=== PATIENT | female | born 1965 | race Caucasian/White ===

== ENCOUNTER 2017-10-30 08:08 | Emergency (ER) | payer MEDICAID ==
[2017-10-30] MEDS ORDERED: Labetalol 5 mg/ml Inj 20ML IV STA (08:45)
[2017-10-30] MEDS ORDERED: Labetalol 25mg/5ml Syringe ONE (09:01)
[2017-10-30 09:20] LABS: BASO # 0.1 K/uL (0.0-0.2); BASO % 0.6 % (0.0-2.0); EOS # 0.3 K/uL (0.0-0.7); EOS % 3.5 % (0.0-4.0); HEMOGLOBIN 13.9 g/dL (11.0-16.0); LYMPH # 3.7 K/uL (1.0-4.3); LYMPH % 41.1 % (20.0-40.0); MEAN CELL VOLUME 84.1 fL (81.0-99.0); MEAN CORPUSCULAR HEMOGLOBIN 29.3 pg (27.0-31.0); MEAN CORPUSCULAR HGB CONC 34.8 g/dL (33.0-37.0); MEAN PLATELET VOLUME 8.3 fL (7.2-11.7); MONO # 0.7 K/uL (0.0-0.8); MONO % 7.4 % (0.0-10.0); NEUT # 4.3 K/uL (1.8-7.0); NEUT % 47.4 % (50.0-75.0); RBC 4.74 Mil/uL (3.80-5.20); RED CELL DISTRIBUTION WIDTH 13.7 % (11.5-14.5)
[2017-10-30 09:25] VITALS: TEMP 98.9
[2017-10-30 09:40] LABS: ALB/GLOB RATIO 1.2 (1.0-2.1); ALBUMIN 4.1 g/dL (3.5-5.0); ALT/SGPT 17 U/L (9-52); AST/SGOT 22 U/L (14-36); BLOOD UREA NITROGEN 10 mg/dL (7-17); CALCIUM 9.2 mg/dl (8.6-10.4); GFR AFRICAN-AMERICAN > 60; GFR NON-AFRICAN AMERICAN > 60; LIPASE 26 U/L (23-300)
--- NOTE | 2017-10-30 10:05 | RAD ---
HISTORY: SOB COMPARISON: No prior. TECHNIQUE: Chest PA and lateral FINDINGS: LUNGS: No active pulmonary disease. PLEURA: No significant pleural effusion identified. No pneumothorax apparent. CARDIOVASCULAR: Normal. OSSEOUS STRUCTURES: No significant abnormalities. VISUALIZED UPPER ABDOMEN: Normal. OTHER FINDINGS: None. IMPRESSION: No acute cardiopulmonary disease appreciated.
--- NOTE | 2017-10-30 10:12 | RAD ---
PROCEDURE: Cervical Spine Radiographs. HISTORY: Pain. COMPARISON: None. FINDINGS: BONES: Limited reversal of cervical curvature without fracture or spondylolisthesis identified. Vertebral body heights are normal as well as disc interspace heights. Limited multilevel spondylosis seen at the inferior cervical spine. No destructive bony lesion appreciable. Prevertebral soft tissues appear unremarkable. Mild multilevel facet arthropathy is suggested. DISC SPACES: As above. SOFT TISSUES: As above. OTHER FINDINGS: None. IMPRESSION: Subtle reversal of cervical curvature with limited multilevel degenerative disc and facet joint changes.
--- NOTE | 2017-10-30 10:13 | RAD ---
PROCEDURE: Radiographs of the Left Shoulder HISTORY: arm pain COMPARISON: No prior. FINDINGS: BONES: No acute fracture or destructive bony lesion identified. JOINTS: Normal. Glenohumeral and acromioclavicular joints preserved. No osteoarthritis. SOFT TISSUES: Normal. OTHER FINDINGS: None. IMPRESSION: Unremarkable radiographs of the left shoulder.
--- NOTE | 2017-10-30 10:20 | C.PDOC ---
History Of Present Illness 52 y/o female presents to the ER complaining of left neck and left shoulder pain which has been present for the past 1 month. Patient states that the pain is worse with movement. Patient reports that she experienced relief with muscle relaxants. Denies having CP and SOB. Of note, patient is right hand dominant. Time Seen by Provider: 10/30/17 08:29 Chief Complaint (Nursing): Upper Extremity Problem/Injury History Per: Patient History/Exam Limitations: no limitations Onset/Duration Of Symptoms: Days Current Symptoms Are (Timing): Still Present Severity: Moderate Past Medical History Reviewed: Historical Data, Nursing Documentation, Vital Signs Vital Signs: Last Vital Signs Temp 98.9 F 10/30/17 09:24 Pulse 82 10/30/17 09:51 Resp 12 10/30/17 09:51 BP 156/96 H 10/30/17 09:51 Pulse Ox 99 10/30/17 11:00 - Medical History PMH: No Chronic Diseases Surgical History: No Surg Hx Family History: States: No Known Family Hx - Social History Hx Alcohol Use: No Hx Substance Use: No - Immunization History Hx Tetanus Toxoid Vaccination: No Hx Influenza Vaccination: No Hx Pneumococcal Vaccination: No Review Of Systems Except As Marked, All Systems Reviewed And Found Negative. Constitutional: Negative for: Fever, Chills Musculoskeletal: Positive for: Neck Pain, Shoulder Pain (left shoulder pain) Physical Exam - Physical Exam Appears: Non-toxic, No Acute Distress Skin: Normal Color, Warm, Dry Head: Atraumatic, Normacephalic Eye(s): bilateral: Normal Inspection Nose: Normal Oral Mucosa: Moist Neck: Paracervical Tenderness (left-sided paracervical tenderness ), Supple Chest: Symmetrical Cardiovascular: Rhythm Regular Respiratory: Normal Breath Sounds, No Rales, No Rhonchi, No Wheezing Gastrointestinal/Abdominal: Normal Exam, Soft, No Tenderness Back: Other (left sided trapezius tenderness ) Extremity: Normal ROM (left arm) Neurological/Psych: Oriented x3, Normal Speech, Normal Motor, Normal Sensation ED Course And Treatment - Laboratory Results Result Diagrams: 10/30/17 09:15 10/30/17 09:15 ECG: Interpreted By Me, Viewed By Me ECG Rhythm: Sinus Rhythm ECG Interpretation: Normal Interpretation Of ECG: NSR with normal intervals, normal axises, and no ST/ T wave abnormalities Rate From EC O2 Sat by Pulse Oximetry: 99 (RA) Pulse Ox Interpretation: Normal - Radiology CXR: Interpreted by Me, Viewed By Me CXR Interpretation: Yes: No Acute Disease - Other Rad X-Ray- Left Shoulder X-Ray: Viewed By Me, Read By Radiologist Interpretation: PROCEDURE: Radiographs of the Left Shoulder. HISTORY: arm pain. COMPARISON: No prior. FINDINGS: BONES: No acute fracture or destructive bony lesion identified. JOINTS: Normal. Glenohumeral and acromioclavicular joints preserved. No osteoarthritis. SOFT TISSUES: Normal. OTHER FINDINGS: None. IMPRESSION: Unremarkable radiographs of the left shoulder. X-Ray- Cervical Spine X-Ray: Viewed By Me, Read By Radiologist Interpretation: PROCEDURE: Cervical Spine Radiographs. HISTORY: Pain. COMPARISON: None. FINDINGS: BONES: Limited reversal of cervical curvature without fracture or spondylolisthesis identified. Vertebral body heights are normal as well as disc interspace heights. Limited multilevel spondylosis seen at the inferior cervical spine. No destructive bony lesion appreciable. Prevertebral soft tissues appear unremarkable. Mild multilevel facet arthropathy is suggested. DISC SPACES: As above. SOFT TISSUES: As above. OTHER FINDINGS: None. IMPRESSION: Subtle reversal of cervical curvature with limited multilevel degenerative disc and facet joint changes. Medical Decision Making Medical Decision Making: Patient was found to have BP - 200/128. Cardiac workup will be ordered. Assessment: Cervical Radiculopathy/ HTN Plan: --Labs --UA --ECG --CXR --X-Ray- Cervical Spine --X-Ray - Left Shoulder --Toradol IV --Trandate IV patient repeat bp lowered. Discussed results with patient and need to follow up. Patient will be started on norvasc and advised to call to make a follow up appointment. Information provided for food consultant doctor. Disposition Counseled Patient/Family Regarding: Studies Performed, Diagnosis, Need For Followup, Rx Given - Disposition Referrals: Violet Keyes MD [Staff Provider] - Beau Farley Jr., MD [Medical Doctor] - Disposition: HOME/ ROUTINE Disposition Time: 10:52 Condition: STABLE Additional Instructions: follow up with Dr Farley in 2 days call to make an appointment take medications as prescribed return to ER if symptoms worsens or progress Prescriptions: Acetaminophen/Codeine [Tylenol/Codeine 300 MG/30 MG] 1 tab PO Q6H PRN #12 tab PRN Reason: Pain, Severe (8-10) amLODIPine [Norvasc] 5 mg PO DAILY #15 tab Cyclobenzaprine [Cyclobenzaprine HCl] 10 mg PO TID PRN #12 tab PRN Reason: Muscle Spasm Naproxen [Naprosyn] 500 mg PO BID PRN #16 tab PRN Reason: Pain, Moderate (4-7) Instructions: Radiculopathy, Controlling Your Blood Pressure Through Lifestyle , Medicines for High Blood Pressure Forms: General Discharge Instructions, [facility] (Finnish), Work Excuse - Clinical Impression Clinical Impression: Cervical radiculopathy, Hypertension - Scribe Statement The provider has reviewed the documentation as recorded by the Andrew Ruiz All medical record entries made by the Andrew were at my direction and personally dictated by me. I have reviewed the chart and agree that the record accurately reflects my personal performance of the history, physical exam, medical decision making, and the department course for this patient. I have also personally directed, reviewed, and agree with the discharge instructions and disposition.
[2017-10-30] MEDS ORDERED: Acetaminophen-Codeine 300/30 mg Tab PO STA (10:49)
[2017-10-30] MEDS ORDERED: Acetaminophen-Codeine 300/30 mg Tab PO ONE (11:23)
[2017-10-30 11:51] VITALS: BP 138/102; PULSE 89; RESP 15; O2SAT 99
--- NOTE | 2017-11-02 05:58 | CARD ---
APPROVED REPORT EKG Measurement Heart [id number] MA 126P13 [id number] <Conclusion> Normal sinus rhythm Normal ECG
== END 2017-10-30 12:02 | disposition home or self-care (01) ==
LOC: C.ER 08:08
DX: M54.12 Radiculopathy, cervical region (principal); I10 Essential (primary) hypertension
CPT/HCPCS: 71046; 72040; 73030; 80053; 82550; 83690; 84484; 85025; 93005; 96374; 99285; J1885

== ENCOUNTER 2017-10-30 12:44 | Observation (INO) | payer MEDICAID ==
[2017-10-30 14:06] LABS: BASO # 0.1 K/uL (0.0-0.2); BASO % 0.7 % (0.0-2.0); EOS # 0.2 K/uL (0.0-0.7); EOS % 2.4 % (0.0-4.0); HEMOGLOBIN 13.9 g/dL (11.0-16.0); LYMPH % 41.9 % (20.0-40.0); MEAN CELL VOLUME 84.7 fL (81.0-99.0); MEAN CORPUSCULAR HEMOGLOBIN 29.6 pg (27.0-31.0); MEAN CORPUSCULAR HGB CONC 34.9 g/dL (33.0-37.0); MEAN PLATELET VOLUME 7.9 fL (7.2-11.7); MONO # 0.6 K/uL (0.0-0.8); MONO % 6.5 % (0.0-10.0); NEUT # 4.6 K/uL (1.8-7.0); NEUT % 48.5 % (50.0-75.0); NRBC % 0.1 % (0.0-2.0); RBC 4.7 Mil/uL (3.80-5.20); RED CELL DISTRIBUTION WIDTH 13.8 % (11.5-14.5); WHITE BLOOD COUNT 9.5 K/uL (4.8-10.8)
[2017-10-30 14:31] LABS: ALB/GLOB RATIO 1.2 (1.0-2.1); ALBUMIN 3.9 g/dL (3.5-5.0); ALT/SGPT 26 U/L (9-52); AST/SGOT 23 U/L (14-36); BLOOD UREA NITROGEN 10 mg/dL (7-17); CALCIUM 9.2 mg/dl (8.6-10.4); GFR AFRICAN-AMERICAN > 60; GFR NON-AFRICAN AMERICAN > 60
--- NOTE | 2017-10-30 14:50 | CT ---
PROCEDURE: CT HEAD WITHOUT CONTRAST. HISTORY: dizziness COMPARISON: None available. TECHNIQUE: Axial computed tomography images were obtained through the head/brain without intravenous contrast. Radiation dose: Total exam DLP = 600.64 mGy-cm. This CT exam was performed using one or more of the following dose reduction techniques: Automated exposure control, adjustment of the mA and/or kV according to patient size, and/or use of iterative reconstruction technique. FINDINGS: HEMORRHAGE: No intracranial hemorrhage. BRAIN: Normal dumont-white matter differentiation and density are appreciated throughout the cerebrum and cerebellum with the brainstem appearing unremarkable as well. There is no mass effect. There is no suspicious extra-axial fluid collection and the midline brain anatomy appears diffusely unremarkable. Bilateral basal ganglia calcifications are appreciated mildly as well as a small calcification in the anterior falx which is nonspecific appearing. VENTRICLES: Unremarkable. No hydrocephalus. CALVARIUM: Unremarkable. PARANASAL SINUSES: Unremarkable as visualized. No significant inflammatory changes. MASTOID AIR CELLS: Unremarkable as visualized. No inflammatory changes. OTHER FINDINGS: None. IMPRESSION: Unremarkable unenhanced head CT. Follow up CT or MRI are available if clinically warranted.
--- NOTE | 2017-10-30 15:18 | C.PDOC ---
History Of Present Illness 52 y/o female presents to the ER for evaluation of a near syncopal episode after she visited the ER earlier today. Patient was evaluated for cervical radiculopathy and elevated BP ( without prior hx), had a workup, and was discharged. Patient returns secondary to near syncope. She reports that feels better now. Denies having CP and SOB. Time Seen by Provider: 10/30/17 12:59 Chief Complaint (Nursing): Syncope History Per: Patient History/Exam Limitations: no limitations Onset/Duration Of Symptoms: Hrs Current Symptoms Are (Timing): Gone Severity: Moderate Past Medical History Reviewed: Historical Data, Nursing Documentation, Vital Signs Vital Signs: Last Vital Signs Temp 98.0 F 10/31/17 08:26 Pulse 97 H 10/31/17 09:00 Resp 20 10/31/17 08:26 BP 158/100 H 10/31/17 08:26 Pulse Ox 100 10/31/17 08:26 - Medical History PMH: No Chronic Diseases Surgical History: No Surg Hx Family History: States: No Known Family Hx - Social History Hx Alcohol Use: No Hx Substance Use: No - Immunization History Hx Tetanus Toxoid Vaccination: No Hx Influenza Vaccination: No Hx Pneumococcal Vaccination: No Review Of Systems Except As Marked, All Systems Reviewed And Found Negative. Constitutional: Negative for: Fever, Chills Neurological: Positive for: Other (near syncope) Physical Exam - Physical Exam Appears: Non-toxic, No Acute Distress Skin: Normal Color, Warm, Dry Head: Atraumatic, Normacephalic Eye(s): bilateral: Normal Inspection Nose: Normal Oral Mucosa: Moist Neck: Supple Chest: Symmetrical Cardiovascular: Rhythm Regular Respiratory: Normal Breath Sounds, No Rales, No Rhonchi, No Wheezing Gastrointestinal/Abdominal: Normal Exam, Soft, No Tenderness Neurological/Psych: Oriented x3, Normal Speech ED Course And Treatment - Laboratory Results Result Diagrams: 10/30/17 13:57 10/30/17 13:57 ECG: Interpreted By Me, Viewed By Me ECG Rhythm: Sinus Rhythm Interpretation Of ECG: NSR with normal intervals, normal axises, and no ST/ T wave abnormalities Rate From EC O2 Sat by Pulse Oximetry: 100 (RA) Pulse Ox Interpretation: Normal - CT Scan/US CT-Head Other Rad Studies (CT/US): Read By Radiologist, Radiology Report Reviewed CT/US Interpretation: PROCEDURE: CT HEAD WITHOUT CONTRAST. HISTORY: dizziness. COMPARISON: None available. TECHNIQUE: Axial computed tomography images were obtained through the head/brain without intravenous contrast. Radiation dose: Total exam DLP = 600.64 mGy-cm. This CT exam was performed using one or more of the following dose reduction techniques: Automated exposure control, adjustment of the mA and/or kV according to patient size, and/ or use of iterative reconstruction technique. FINDINGS: HEMORRHAGE: No intracranial hemorrhage. BRAIN: Normal dumont-white matter differentiation and density are appreciated throughout the cerebrum and cerebellum with the brainstem appearing unremarkable as well. There is no mass effect. There is no suspicious extra-axial fluid collection and the midline brain anatomy appears diffusely unremarkable. Bilateral basal ganglia calcifications are appreciated mildly as well as a small calcification in the anterior falx which is nonspecific appearing. VENTRICLES: Unremarkable. No hydrocephalus. CALVARIUM: Unremarkable. PARANASAL SINUSES: Unremarkable as visualized. No significant inflammatory changes. MASTOID AIR CELLS: Unremarkable as visualized. No inflammatory changes. OTHER FINDINGS: None. IMPRESSION: Unremarkable unenhanced head CT. Follow up CT or MRI are available if clinically warranted. Medical Decision Making Medical Decision Making: Assessment: Near- Syncope Plan: --Labs --ECG --CT- Head Updates: Case discussed with hospitalist, . Patient will be admitted to [facility] under the service of for near- syncope. Disposition Discussed With .: Miguel Humphreys Doctor Will See Patient In The: Hospital Counseled Patient/Family Regarding: Studies Performed, Diagnosis - Disposition Disposition: HOSPITALIZED Disposition Time: 15:20 Condition: FAIR - Clinical Impression Clinical Impression: Near syncope - Scribe Statement The provider has reviewed the documentation as recorded by the Andrew Ruiz Provider Attestation: All medical record entries made by the Scribe were at my direction and personally dictated by me. I have reviewed the chart and agree that the record accurately reflects my personal performance of the history, physical exam, medical decision making, and the department course for this patient. I have also personally directed, reviewed, and agree with the discharge instructions and disposition.
--- NOTE | 2017-10-30 15:27 | CP.PCM.HP ---
<Justin Garcia - Last Filed: 10/30/17 17:00> History of Present Illness - History of Present Illness History of Present Illness: PGY2 note for Hospitalist service - Dr. Juliann ALBRECHT - near syncope, neck/arm pain HPI - Patient is a 52 year old female with a past medical history of hypertension, migraines, multiple previous vasovagal syncopal episodes, anxiety/ depression (with history of suicide ideation) who presents to [facility] ED s/p near syncopal episode at the pharmacy. She came to the ED earlier this morning complaining of neck and left shoulder pain which has been present for the past 1 month. Patient states that the pain is worse with movement, and associated with numbness/tingling in the extremity. 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 Patient reports that she experienced relief with muscle relaxants. Patient reports long history of syncopal events since childhood. She reports "passing out" > 10+ times in her life - always with same prodrome of anxiety, sudden SOB and "in crowds." Patient admits lots of stress recently including suicidal thoughts this AM ( denies presently). Admits she feels down over her having "no job//kids" saying "I feel like there is no point to my life." Denies chest pain, abd pain, N/V, headache, fever, chills, facial droop, slurred speech, urinary symptoms, or SOB. Of note, patient is right hand dominant. PMHx - HTN, Anxiety, Depression (w suicidal ideation), migraines, Vasovagal syncope PSHx - denies Allergies - NKDA Meds - Amlodipine 5mg PO daily. Naproxen 500mg PO BID, Mirtazapine 15mg PO QPM, Hydroxyzine 50mg PO BID prn, Cyclobenzaprine 10mg PO TID prn, Citalopram 20mg PO daily, Buspirone 5mg PO daily Fam Hx - denies SHx - denies drug use; admits occasional EtOH; former smoker (quit 2005 - smoked 1/2 ppd x 7 years) PMD - none Present on Admission - Present on Admission Any Indicators Present on Admission: No Review of Systems - Constitutional Constitutional: absent: Chills, Fever, Weight Loss, Weakness - EENT Eyes: absent: Blurred Vision, Change in Vision Ears: absent: Tinnitus, Dizziness - Cardiovascular Cardiovascular: Syncope. absent: Chest Pain, Chest Pain at Rest - Respiratory Respiratory: absent: Cough, Dyspnea, Dyspnea on Exertion - Gastrointestinal Gastrointestinal: absent: Constipation, Diarrhea, Nausea, Vomiting - Genitourinary Genitourinary: absent: Change in Urinary Stream, Difficulty Urinating - Musculoskeletal Musculoskeletal: Neck Pain, Numbness, Tingling Additional comments: left shoulder pain - Integumentary Integumentary: absent: Dry Skin, Wounds - Neurological Neurological: Numbness, Tingling (LUE). absent: Dizziness, Weakness - Psychiatric Psychiatric: Anxiety - Endocrine Endocrine: absent: Fatigue, Palpitations Past Patient History - Past Social History Smoking Status: Never Smoked - PSYCHIATRIC Hx Substance Use: No - SURGICAL HISTORY Hx Surgeries: No Meds Allergies/Adverse Reactions: Allergies Allergy/AdvReac Type Severity Reaction Status Date / Time No Known Allergies Allergy Verified 10/30/17 08:18 Physical Exam - Constitutional Appears: Non-toxic, No Acute Distress - Head Exam Head Exam: ATRAUMATIC, NORMAL INSPECTION - Eye Exam Eye Exam: EOMI, PERRL Pupil Exam: NORMAL ACCOMODATION - ENT Exam ENT Exam: Mucous Membranes Moist - Respiratory Exam Respiratory Exam: Clear to Auscultation Bilateral, NORMAL BREATHING PATTERN. absent: Rales, Rhonchi, Wheezes, Respiratory Distress - Cardiovascular Exam Cardiovascular Exam: REGULAR RHYTHM, RRR, +S1, +S2 - GI/Abdominal Exam GI & Abdominal Exam: Normal Bowel Sounds, Soft. absent: Distended, Firm, Guarding, Tenderness - Extremities Exam Extremities exam: Positive for: normal inspection Additional comments: normal ROM left arm No signs of hypothenar muscle wasting Tinel negative - Back Exam Back exam: muscle spasm (trapezius), paraspinal tenderness. absent: CVA tenderness (L), CVA tenderness (R) Additional comments: (left sided trapezius tenderness) C4-C7 F Sr Rr - Neurological Exam Neurological exam: Alert, CN II-XII Intact, Normal Gait, Oriented x3 Additional comments: no facial droop, or slurred speech - Expanded Neurological Exam Expanded Patient oriented to: person, place, time Cranial nerves: EOM's Intact: Normal, Nystagmus: Normal, Tongue Deviation: Normal Cerebellar Function: Finger to Nose: Normal, Heel to Wilson: Normal, Romberg: Normal Sensory exam: Lower Extremity Light Touch: Normal, Upper Extremity Light Touch: Normal Neuro motor strength exam: Left Upper Extremity: 4, Right Upper Extremity: 5, Left Lower Extremity: 5, Right Lower Extremity: 5 Coma Scale Eye Opening: SPONTANEOUS Coma Scale Motor Response: OBEYS COMMANDS Coma Scale Verbal: Oriented Coma Scale Total: 15 - Psychiatric Exam Psychiatric exam: Anxious, Depressed (no job, kids, ) - Skin Skin Exam: Normal Color, Warm Results - Vital Signs Recent Vital Signs: Last Vital Signs Temp 99.4 F 10/30/17 15:10 Pulse 92 H 10/30/17 15:10 Resp 18 10/30/17 15:10 BP 116/80 10/30/17 15:10 Pulse Ox 100 10/30/17 15:20 - Labs Result Diagrams: 10/30/17 13:57 10/30/17 13:57 Labs: Laboratory Results - last 24 hr 10/30/17 10/30/17 10/30/17 13:00 13:57 13:57 WBC 9.5 RBC 4.70 Hgb 13.9 Hct 39.8 MCV 84.7 MCH 29.6 MCHC 34.9 RDW 13.8 Plt Count 255 MPV 7.9 Neut % (Auto) 48.5 L Lymph % (Auto) 41.9 H Benzie % (Auto) 6.5 Eos % (Auto) 2.4 Baso % (Auto) 0.7 Neut # (Auto) 4.6 Lymph # (Auto) 4.0 Benzie # (Auto) 0.6 Eos # (Auto) 0.2 Baso # (Auto) 0.1 Sodium 138 Potassium 4.3 Chloride 102 Carbon Dioxide 28 Anion Gap 13 BUN 10 Creatinine 0.8 Est GFR ( Amer) > 60 Est GFR (Non-Af Amer) > 60 POC Glucose (mg/dL) 123 H Random Glucose 180 H Calcium 9.2 Total Bilirubin 0.6 AST 23 ALT 26 Alkaline Phosphatase 69 Troponin I < 0.0120 Total Protein 7.3 Albumin 3.9 Globulin 3.4 Albumin/Globulin Ratio 1.2 Assessment & Plan - Assessment and Plan (Free Text) Assessment: Near syncope Observe on tele Long history of vasovagal syncopal episodes EKG - NSR with normal intervals, normal axis, and no ST/ T wave abnormalities Head CT - no acute infarct or acute pathology CXR - NAD Troponin negative x 1; f/u additional @ 1800 f/u ECHO Muscle Strain (arm/shoulder) XR Shoulder (10/30/17): normal Flexeril 10mg PO HS Cervical spine OA Xr C-spine (10/30/17): multi-level spondylosis Toradol 30mg IV Q6H PRN Hypertension Uncontrolled at presentation in ED (200/128 BPO Max - now controlled) BP was elevated in the ER earlier today: 200/128, now controlled Norvasc 5mg PO daily Monitor Anxiety Buspirone 5mg PO Daily Atarax 50mg PO BID PRN Depression Hx of suicidal ideation; denies current ideation Celexa 20mg PO daily Remeron 15mg PO HS Hx of erosive Gastroenteritis Diagnosed at previous endoscopy "two years ago" Pt on no home meds Protonix 40mg PO Daily Monitor considering pt on IV NSAID Prophylactic Measures VTE: SCDs Heart healthy diet GI: Protonix 40mg PO Daily Justin Garcia PGY-[address] Humphreys <Miguel Humphreys - Last Filed: 10/30/17 17:27> Results - Vital Signs Recent Vital Signs: Last Vital Signs Temp 99.4 F 10/30/17 15:10 Pulse 92 H 10/30/17 15:10 Resp 18 10/30/17 15:10 BP 116/80 10/30/17 15:10 Pulse Ox 100 10/30/17 16:18 - Labs Result Diagrams: 10/30/17 13:57 10/30/17 13:57 Labs: Laboratory Results - last 24 hr 10/30/17 10/30/17 10/30/17 13:00 13:57 13:57 WBC 9.5 RBC 4.70 Hgb 13.9 Hct 39.8 MCV 84.7 MCH 29.6 MCHC 34.9 RDW 13.8 Plt Count 255 MPV 7.9 Neut % (Auto) 48.5 L Lymph % (Auto) 41.9 H Benzie % (Auto) 6.5 Eos % (Auto) 2.4 Baso % (Auto) 0.7 Neut # (Auto) 4.6 Lymph # (Auto) 4.0 Benzie # (Auto) 0.6 Eos # (Auto) 0.2 Baso # (Auto) 0.1 Sodium 138 Potassium 4.3 Chloride 102 Carbon Dioxide 28 Anion Gap 13 BUN 10 Creatinine 0.8 Est GFR ( Amer) > 60 Est GFR (Non-Af Amer) > 60 POC Glucose (mg/dL) 123 H Random Glucose 180 H Calcium 9.2 Total Bilirubin 0.6 AST 23 ALT 26 Alkaline Phosphatase 69 Troponin I < 0.0120 Total Protein 7.3 Albumin 3.9 Globulin 3.4 Albumin/Globulin Ratio 1.2 Attending/Attestation - Attestation I have personally seen and examined this patient.: Yes I have fully participated in the care of the patient.: Yes I have reviewed all pertinent clinical information: Yes Notes (Text): 10/30/17 17:27 Medical Attending: Patient was seen and examined by me, agree with the above note by medical recruiter. I saw the patient together with the medical recruiter in the emergency room. She looked remarkably well when we saw her and she was debating if she wanted to leave AMA or not. She was very nervous about the CAT scan and her blood work CAT scan was okay and the blood work has been stable. She earlier came in the morning for shoulder pain and at that time he was also noted that she had very significantly elevated blood pressures. She got IV labetalol at that time it did bring down the blood pressures and they felt comfortable discharging her so the did area she was walking to the pharmacy when she felt very nervous at the pharmacy and therefore had a near syncopal episode. She is brought back to the emergency room and we were called to the patient in for observation. She said that she felt much better now and she felt her normal self. Again she was debating about going AMA or not however after talking to us said to her that ideally I would like to keep her here just for observation overnight and if her numbers remain stable that she could potentially be discharged tomorrow in the morning Thank you very much, Miguel Humphreys
[2017-10-30] MEDS ORDERED: Naproxen 550 mg Tab PO PRN (15:32)
[2017-10-30 17:45] VITALS: RESP 20
[2017-10-31 08:28] VITALS: BP 158/100; TEMP 98; O2SAT 100
[2017-10-31 09:06] VITALS: PULSE 97
[2017-10-31] MEDS ORDERED: Pantoprazole 40 mg EC Tab PO SCH (10:00)
--- NOTE | 2017-10-31 10:02 | CP.PCM.DIS ---
<WaqasTamara Lester - Last Filed: 10/31/17 11:08> Provider - Provider Date of Admission: 10/30/17 15:19 Attending physician: Miguel Humphreys DO Time Spent in preparation of Discharge (in minutes): 40 Hospital Course - Lab Results Lab Results: Most Recent Lab Values WBC 9.5 K/uL (4.8-10.8) 10/30/17 13:57 RBC 4.70 Mil/uL (3.80-5.20) 10/30/17 13:57 Hgb 13.9 g/dL (11.0-16.0) 10/30/17 13:57 Hct 39.8 % (34.0-47.0) 10/30/17 13:57 MCV 84.7 fL (81.0-99.0) 10/30/17 13:57 MCH 29.6 pg (27.0-31.0) 10/30/17 13:57 MCHC 34.9 g/dL (33.0-37.0) 10/30/17 13:57 RDW 13.8 % (11.5-14.5) 10/30/17 13:57 Plt Count 255 K/uL (130-400) 10/30/17 13:57 MPV 7.9 fL (7.2-11.7) 10/30/17 13:57 Neut % (Auto) 48.5 % (50.0-75.0) L 10/30/17 13:57 Lymph % (Auto) 41.9 % (20.0-40.0) H 10/30/17 13:57 [place] % (Auto) 6.5 % (0.0-10.0) 10/30/17 13:57 Eos % (Auto) 2.4 % (0.0-4.0) 10/30/17 13:57 Baso % (Auto) 0.7 % (0.0-2.0) 10/30/17 13:57 Neut # (Auto) 4.6 K/uL (1.8-7.0) 10/30/17 13:57 Lymph # (Auto) 4.0 K/uL (1.0-4.3) 10/30/17 13:57 [place] # (Auto) 0.6 K/uL (0.0-0.8) 10/30/17 13:57 Eos # (Auto) 0.2 K/uL (0.0-0.7) 10/30/17 13:57 Baso # (Auto) 0.1 K/uL (0.0-0.2) 10/30/17 13:57 Sodium 138 mmol/L (132-148) 10/30/17 13:57 Potassium 4.3 mmol/L (3.6-5.2) 10/30/17 13:57 Chloride 102 mmol/L (98-107) 10/30/17 13:57 Carbon Dioxide 28 mmol/L (22-30) 10/30/17 13:57 Anion Gap 13 (10-20) 10/30/17 13:57 BUN 10 mg/dL (7-17) 10/30/17 13:57 Creatinine 0.8 mg/dL (0.7-1.2) 10/30/17 13:57 Est GFR ( Amer) > 60 10/30/17 13:57 Est GFR (Non-Af Amer) > 60 10/30/17 13:57 POC Glucose (mg/dL) 123 mg/dL (65-110) H 10/30/17 13:00 Random Glucose 180 mg/dL (65-105) H 10/30/17 13:57 Calcium 9.2 mg/dl (8.6-10.4) 10/30/17 13:57 Total Bilirubin 0.6 mg/dL (0.2-1.3) 10/30/17 13:57 AST 23 U/L (14-36) 10/30/17 13:57 ALT 26 U/L (9-52) 10/30/17 13:57 Alkaline Phosphatase 69 U/L (38-126) 10/30/17 13:57 Troponin I < 0.0120 ng/mL (0.00-0.120) 10/30/17 19:32 Total Protein 7.3 g/dL (6.3-8.3) 10/30/17 13:57 Albumin 3.9 g/dL (3.5-5.0) 10/30/17 13:57 Globulin 3.4 gm/dL (2.2-3.9) 10/30/17 13:57 Albumin/Globulin Ratio 1.2 (1.0-2.1) 10/30/17 13:57 - Hospital Course Hospital Course: HPI - Patient is a 52 year old female with a past medical history of hypertension, migraines, multiple previous vasovagal syncopal episodes, anxiety/ depression (with history of suicide ideation) who presents to [facility] ED s/p near syncopal episode at the pharmacy. She came to the ED earlier this morning complaining of neck and left shoulder pain which has been present for the past 1 month. Patient states that the pain is worse with movement, and associated with numbness/tingling in the extremity. 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 Patient reports that she experienced relief with muscle relaxants. Patient reports long history of syncopal events since childhood. She reports "passing out" > 10+ times in her life - always with same prodrome of anxiety, sudden SOB and "in crowds." Patient admits lots of stress recently including suicidal thoughts this AM ( denies presently). Admits she feels down over her having "no job//kids" saying "I feel like there is no point to my life." Denies chest pain, abd pain, N/V, headache, fever, chills, facial droop, slurred speech, urinary symptoms, or SOB. Of note, patient is right hand dominant. PMD - none PMHx - HTN, Anxiety, Depression (w suicidal ideation), migraines, Vasovagal syncope PSHx - denies Allergies - NKDA Meds - Amlodipine 5mg PO daily. Naproxen 500mg PO BID, Mirtazapine 15mg PO QPM, Hydroxyzine 50mg PO BID prn, Cyclobenzaprine 10mg PO TID prn, Citalopram 20mg PO daily, Buspirone 5mg PO daily Fam Hx - denies SHx - denies drug use; admits occasional EtOH; former smoker (quit 2005 - smoked 1/2 ppd x 7 years) Hospital Course: Patient was admitted for a near syncopal episode for observation. Patient's home medications were restarted. A head CT was done which showed no acute infarct or acute pathology. Troponins were negative x2. EKG showed NSR with normal intervals, normal axis, and no ST/T wave abnormalities. Patient was seen and examined at bedside in the AM. Patient stated this near syncopal episode happened previously about 20 years ago. Patient also stated when this occurred yesterday she had not eaten anything since being the ER. Patient stated she was feeling a lot better. Patient denied headache, dizziness, lightheadedness, shortness of breath, chest pain, palpitations, fever, nausea or vomiting. Patient was discharged home and discussed with patient to [facility]2 week.s Images: - Head CT (10/30/17): Unremarkable unenhanced head CT. Follow up CT or MRI are available if clinically warranted. - Shoulder X-ray (10/30/17): Unremarkable radiographs of the left shoulder. - Cervical Spine X-ray (10/30/17): Subtle reversal of cervical curvature with limited multilevel degenerative disc and facet joint changes. - Chest X-ray (10/30/17): No acute cardiopulmonary disease appreciated. Patient stable for discharge after ECHO. Patient to continue all home medications. Please call to make an appointment for follow up of ECHO results and monitoring of hypertension and other chronic conditions. [address] [id number] This is a summary of the patient's hospitalization, please review EMR for further details. Discharge Exam - Head Exam Head Exam: ATRAUMATIC, NORMAL INSPECTION - Eye Exam Eye Exam: EOMI, Normal appearance, PERRL. absent: Scleral icterus Pupil Exam: NORMAL ACCOMODATION - ENT Exam ENT Exam: Mucous Membranes Moist - Respiratory Exam Respiratory Exam: Clear to PA & Lateral, NORMAL BREATHING PATTERN - Cardiovascular Exam Cardiovascular Exam: REGULAR RHYTHM, RRR, +S1, +S2 - GI/Abdominal Exam GI & Abdominal Exam: Normal Bowel Sounds, Soft. absent: Tenderness - Extremities Exam Extremities exam: full ROM, normal inspection Additional comments: Muscle Strength 5/5 of bilateral upper and lower extremities - Neurological Exam Neurological exam: Alert, CN II-XII Intact, Oriented x3 - Psychiatric Exam Psychiatric exam: Normal Affect, Normal Mood - Skin Skin Exam: Normal Color Discharge Plan - Discharge Medications Prescriptions: amLODIPine [Norvasc] 5 mg PO DAILY #30 tab - Follow Up Plan Condition: GOOD Disposition: HOME/ ROUTINE Instructions: DASH Diet, High Blood Pressure (DC), Low Salt Diet, Syncope ( Fainting) (DC), Amlodipine, Near Fainting (DC) Additional Instructions: Patient to continue all home medications. Please call to make an appointment for follow up of ECHO results and monitoring of hypertension and other chronic conditions. [place] [phone] Referrals: [facility] at [facility] [Outside] <Miguel Humphreys - Last Filed: 10/31/17 14:33> Provider - Provider Date of Admission: 10/30/17 15:19 Attending physician: Miguel Humphreys DO Hospital Course - Lab Results Lab Results: Most Recent Lab Values WBC 9.5 K/uL (4.8-10.8) 10/30/17 13:57 RBC 4.70 Mil/uL (3.80-5.20) 10/30/17 13:57 Hgb 13.9 g/dL (11.0-16.0) 10/30/17 13:57 Hct 39.8 % (34.0-47.0) 10/30/17 13:57 MCV 84.7 fL (81.0-99.0) 10/30/17 13:57 MCH 29.6 pg (27.0-31.0) 10/30/17 13:57 MCHC 34.9 g/dL (33.0-37.0) 10/30/17 13:57 RDW 13.8 % (11.5-14.5) 10/30/17 13:57 Plt Count 255 K/uL (130-400) 10/30/17 13:57 MPV 7.9 fL (7.2-11.7) 10/30/17 13:57 Neut % (Auto) 48.5 % (50.0-75.0) L 10/30/17 13:57 Lymph % (Auto) 41.9 % (20.0-40.0) H 10/30/17 13:57 [place] % (Auto) 6.5 % (0.0-10.0) 10/30/17 13:57 Eos % (Auto) 2.4 % (0.0-4.0) 10/30/17 13:57 Baso % (Auto) 0.7 % (0.0-2.0) 10/30/17 13:57 Neut # (Auto) 4.6 K/uL (1.8-7.0) 10/30/17 13:57 Lymph # (Auto) 4.0 K/uL (1.0-4.3) 10/30/17 13:57 [place] # (Auto) 0.6 K/uL (0.0-0.8) 10/30/17 13:57 Eos # (Auto) 0.2 K/uL (0.0-0.7) 10/30/17 13:57 Baso # (Auto) 0.1 K/uL (0.0-0.2) 10/30/17 13:57 Sodium 138 mmol/L (132-148) 10/30/17 13:57 Potassium 4.3 mmol/L (3.6-5.2) 10/30/17 13:57 Chloride 102 mmol/L (98-107) 10/30/17 13:57 Carbon Dioxide 28 mmol/L (22-30) 10/30/17 13:57 Anion Gap 13 (10-20) 10/30/17 13:57 BUN 10 mg/dL (7-17) 10/30/17 13:57 Creatinine 0.8 mg/dL (0.7-1.2) 10/30/17 13:57 Est GFR ( Amer) > 60 10/30/17 13:57 Est GFR (Non-Af Amer) > 60 10/30/17 13:57 POC Glucose (mg/dL) 123 mg/dL (65-110) H 10/30/17 13:00 Random Glucose 180 mg/dL (65-105) H 10/30/17 13:57 Calcium 9.2 mg/dl (8.6-10.4) 10/30/17 13:57 Total Bilirubin 0.6 mg/dL (0.2-1.3) 10/30/17 13:57 AST 23 U/L (14-36) 10/30/17 13:57 ALT 26 U/L (9-52) 10/30/17 13:57 Alkaline Phosphatase 69 U/L (38-126) 10/30/17 13:57 Troponin I < 0.0120 ng/mL (0.00-0.120) 10/30/17 19:32 Total Protein 7.3 g/dL (6.3-8.3) 10/30/17 13:57 Albumin 3.9 g/dL (3.5-5.0) 10/30/17 13:57 Globulin 3.4 gm/dL (2.2-3.9) 10/30/17 13:57 Albumin/Globulin Ratio 1.2 (1.0-2.1) 10/30/17 13:57 Attending/Attestation - Attestation I have personally seen and examined this patient.: Yes I have fully participated in the care of the patient.: Yes I have reviewed all pertinent clinical information, including history, physical exam and plan: Yes Notes (Text): 10/31/17 14:30 Medical attending: Patient can be discharged following the echo. She will need to follow up with the [facility] for the results Her BP, while not has high as when she intially caim to the ER - was still somewhat elevated. She will need to do lifestyle, diet, and also medication for the time being. She is not orthostatic, blood work stable as well Miguel Humphreys
--- NOTE | 2017-11-02 05:05 | CARD ---
APPROVED REPORT EXAM: Two-dimensional and M-mode echocardiogram with Doppler and color Doppler. Other Information Quality : GoodRhythm : INDICATION Dizziness and Vertigo Syncope RISK FACTORS Hypertension 2D DIMENSIONS IVSd0.8 (0.7-1.1cm)LVDd3.1 (3.9-5.9cm) PWd0.8 (0.7-1.1cm)LVDs2.2 (2.5-4.0cm) FS (%) 29.9 %LVEF (%)58.6 (>50%) M-Mode DIMENSIONS Left Atrium (MM)2.65 (2.5-4.0cm)Aortic Root2.94 (2.2-3.7cm) Aortic Cusp Exc.1.84 (1.5-2.0cm) Mitral Valve MV E Pgapirfz41.9cm/sMV A Bjevijov25.6cm/sE/A ratio0.8 TDI E/Lateral E'0.0E/Medial E'0.0 Tricuspid Valve TR Peak Vjeemhuc083wi/sTR Peak Gr.61omYqIAAV96tqUp LEFT VENTRICLE The left ventricle is normal size. There is normal left ventricular wall thickness. Left ventricle systolic function is normal. The Ejection Fraction is 55-60%. There is normal LV segmental wall motion. Tissue Doppler imaging reveals abnormal left ventricular diastolic dysfunction. RIGHT VENTRICLE The right ventricle is normal size. There is normal right ventricular wall thickness. The right ventricular systolic function is normal. ATRIA The left atrium size is normal. The right atrium size is normal. The interatrial septum is intact with no evidence for an atrial septal defect. AORTIC VALVE The aortic valve is normal in structure. No aortic regurgitation is present. There is no aortic valvular stenosis. MITRAL VALVE The mitral valve is normal in structure. There is no evidence of mitral valve prolapse. There is no mitral valve stenosis. There is no mitral valve regurgitation noted. TRICUSPID VALVE The tricuspid valve is normal in structure. There is mild tricuspid regurgitation. Right ventricular systolic pressure is estimated at less than 30 mmHg. There is no pulmonary hypertension. PULMONIC VALVE The pulmonic valve is not well visualized. There is trace pulmonic valvular regurgitation. GREAT VESSELS The aortic root is normal in size. PERICARDIAL EFFUSION There is no significant pericardial effusion. <Conclusion> Left ventricle systolic function is normal. The Ejection Fraction is 55-60%. Diastolic dysfunction. No aortic regurgitation is present. There is no mitral valve regurgitation noted. There is mild tricuspid regurgitation. There is no pulmonary hypertension. There is trace pulmonic valvular regurgitation.
--- NOTE | 2017-11-02 05:49 | CARD ---
APPROVED REPORT EKG Measurement Heart [id number] [place] 126P1 [id number] <Conclusion> Normal sinus rhythm Normal ECG
== END 2017-10-31 13:26 | disposition home or self-care (01) ==
LOC: C.ER 12:44 → C.6T 15:19
PROVIDERS: ADMIT Hospitalist; ATTEND Hospitalist
DX: R55 Syncope and collapse (principal); I10 Essential (primary) hypertension; M47.812 Spondylosis without myelopathy or radiculopathy, cervical region; S46.912A Strain of unspecified muscle, fascia and tendon at shoulder and upper arm level, left arm, initial encounter; F32.9 Major depressive disorder, single episode, unspecified; F41.9 Anxiety disorder, unspecified; Z87.891 Personal history of nicotine dependence; X58.XXXA Exposure to other specified factors, initial encounter

== ENCOUNTER 2018-03-15 12:48 | Observation (INO) | payer OTHER ==
[2018-03-15] MEDS ORDERED: Sodium Chloride 0.9% 1,000 ML IV ONE (15:07)
--- NOTE | 2018-03-15 15:09 | C.PDOC ---
History Of Present Illness 53 y/o female, with PMHx of anxiety, depression, and HTN, presents to ED c/o nausea, vomiting, and dizziness since this morning. Denies headache, weakness, numbness, chest pain, shortness of breath, or fever. Contrary to triage, pt does not complain of abdominal pain. Time Seen by Provider: 03/15/18 14:43 Chief Complaint (Nursing): Abdominal Pain History Per: Patient History/Exam Limitations: no limitations Onset/Duration Of Symptoms: Hrs Current Symptoms Are (Timing): Still Present Recent travel outside of the [place]: No Additional History Per: Patient Past Medical History Reviewed: Historical Data, Nursing Documentation, Vital Signs Vital Signs: Last Vital Signs Temp 97.5 F L 03/15/18 13:16 Pulse 74 03/15/18 13:16 Resp 19 03/15/18 13:16 BP 138/94 H 03/15/18 13:16 Pulse Ox 100 03/15/18 13:16 - Medical History PMH: Anxiety, Depression, HTN Family History: States: Unknown Family Hx - Social History Hx Alcohol Use: Yes Hx Substance Use: No - Immunization History Hx Tetanus Toxoid Vaccination: No Hx Influenza Vaccination: No Hx Pneumococcal Vaccination: No Review Of Systems Except As Marked, All Systems Reviewed And Found Negative. Constitutional: Negative for: Fever, Chills Eyes: Negative for: Vision Change Cardiovascular: Negative for: Chest Pain Respiratory: Negative for: Shortness of Breath Gastrointestinal: Positive for: Nausea, Vomiting. Negative for: Abdominal Pain, Diarrhea Neurological: Positive for: Dizziness. Negative for: Weakness, Numbness, Change in Speech, Headache Physical Exam - Physical Exam Appears: Non-toxic, No Acute Distress Skin: Normal Color, Warm, Dry Head: Atraumatic, Normacephalic Eye(s): bilateral: Normal Inspection Oral Mucosa: Moist Neck: Supple Chest: Symmetrical Cardiovascular: Rhythm Regular, No Murmur Respiratory: Normal Breath Sounds, No Rales, No Rhonchi, No Wheezing Gastrointestinal/Abdominal: Soft, No Tenderness Extremity: Normal ROM, No Pedal Edema Neurological/Psych: Oriented x3, Normal Speech, Normal Cognition, No Other (no focal deficits) ED Course And Treatment - Laboratory Results Result Diagrams: 03/15/18 15:22 03/15/18 15:22 ECG: Interpreted By Me, Viewed By Me ECG Rhythm: Sinus Rhythm ECG Interpretation: No Acute Changes Interpretation Of ECG: Normal intervals, normal axis. No ST/T wave changes. Rate From EC (bpm) O2 Sat by Pulse Oximetry: 100 (RA) Pulse Ox Interpretation: Normal Medical Decision Making Medical Decision Making: Plan: Blood work Urinalysis Head CT EKG Zofran Antivert Sudafed IV fluids patient reevaluated and has ongoing dizziness. Ativan ordered. Patient admitted to medical floor for observation to s/o Dr. Leyva. Disposition Discussed With : Dickson Leyva Doctor Will See Patient In The: Hospital Counseled Patient/Family Regarding: Studies Performed, Diagnosis - Disposition Disposition: HOSPITALIZED Disposition Time: 17:03 Condition: FAIR - Clinical Impression Clinical Impression: Dizziness - Scribe Statement The provider has reviewed the documentation as recorded by the Scribe KP All medical record entries made by the Scribe were at my direction and personally dictated by me. I have reviewed the chart and agree that the record accurately reflects my personal performance of the history, physical exam, medical decision making, and the department course for this patient. I have also personally directed, reviewed, and agree with the discharge instructions and disposition.
[2018-03-15 15:35] LABS: BASO # 0.1 K/uL (0.0-0.2); BASO % 0.8 % (0.0-2.0); EOS # 0.1 K/uL (0.0-0.7); EOS % 0.9 % (0.0-4.0); HEMOGLOBIN 12.7 g/dL (11.0-16.0); LYMPH # 3.6 K/uL (1.0-4.3); LYMPH % 34.3 % (20.0-40.0); MEAN CELL VOLUME 84.1 fL (81.0-99.0); MEAN CORPUSCULAR HEMOGLOBIN 28.7 pg (27.0-31.0); MEAN CORPUSCULAR HGB CONC 34.1 g/dL (33.0-37.0); MEAN PLATELET VOLUME 8.2 fL (7.2-11.7); MONO # 0.5 K/uL (0.0-0.8); MONO % 4.7 % (0.0-10.0); NEUT # 6.2 K/uL (1.8-7.0); NEUT % 59.3 % (50.0-75.0); NRBC % 0.2 % (0.0-2.0); RBC 4.42 Mil/uL (3.80-5.20); RED CELL DISTRIBUTION WIDTH 14.1 % (11.5-14.5); WHITE BLOOD COUNT 10.5 K/uL (4.8-10.8)
[2018-03-15 15:37] LABS: ALB/GLOB RATIO 1.5 (1.0-2.1); ALBUMIN 4.4 g/dL (3.5-5.0); ALT/SGPT 37 U/L (9-52); AST/SGOT 23 U/L (14-36); BLOOD UREA NITROGEN 9 mg/dL (7-17); CALCIUM 9.6 mg/dl (8.6-10.4); GFR NON-AFRICAN AMERICAN > 60
[2018-03-15 15:44] LABS: SQUAMOUS EPITHIAL 5 /hpf (0-5); URINE BILIRUBIN NEGATIVE (NEGATIVE); URINE BLOOD 1+ (NEGATIVE); URINE CLARITY Clear (Clear); URINE COLOR Straw (YELLOW); URINE GLUCOSE (UA) NORMAL (Normal); URINE LEUKOCYTE ESTERASE NEG Leu/uL (Negative); URINE PROTEIN NEGATIVE (NEGATIVE); URINE UROBILINOGEN NORMAL mg/dL (0.2-1.0)
--- NOTE | 2018-03-15 16:45 | CT ---
Date of service: 03/15/2018 PROCEDURE: CT HEAD WITHOUT CONTRAST. HISTORY: Headache COMPARISON: 10/30/2017. TECHNIQUE: Axial computed tomography images were obtained through the head/brain without intravenous contrast. Radiation dose: Total exam DLP = 774.88 mGy-cm. This CT exam was performed using one or more of the following dose reduction techniques: Automated exposure control, adjustment of the mA and/or kV according to patient size, and/or use of iterative reconstruction technique. FINDINGS: HEMORRHAGE: No intracranial hemorrhage. BRAIN: There are mild chronic microangiopathic changes. There is no mass, mass effect or abnormal extra-axial fluid collection. There is no territorial infarction. There are symmetric bilateral basal ganglia calcifications. The midline sagittal structures are normal. VENTRICLES: The ventricles are normal in size, shape and configuration. CALVARIUM: The skull base and calvarium are normal. PARANASAL SINUSES: Predominantly clear. MASTOID AIR CELLS: Predominantly clear. OTHER FINDINGS: None. IMPRESSION: No acute intracranial abnormality.
[2018-03-15 23:21] VITALS: RESP 20; O2SAT 99
--- NOTE | 2018-03-15 23:23 | CP.PCM.HP ---
Past Patient History - Past Social History Smoking Status: Never Smoked - CARDIAC Hx Hypertension: Yes - ENDOCRINE/METABOLIC Hx Diabetes Mellitus Type 2: Yes - PSYCHIATRIC Hx Anxiety: Yes Hx Depression: Yes Hx Substance Use: No - SURGICAL HISTORY Hx Surgeries: No - ANESTHESIA Hx Anesthesia: No Meds Allergies/Adverse Reactions: Allergies Allergy/AdvReac Type Severity Reaction Status Date / Time No Known Allergies Allergy Verified 03/15/18 13:19 Results - Vital Signs Recent Vital Signs: Last Vital Signs Temp 98.7 F 03/15/18 23:18 Pulse 91 H 03/15/18 23:18 Resp 20 03/15/18 23:18 BP 112/73 03/15/18 23:18 Pulse Ox 99 03/15/18 23:18 - Labs Result Diagrams: 03/15/18 15:22 03/15/18 15:22 Labs: Laboratory Results - last 24 hr 03/15/18 03/15/18 03/15/18 15:22 15:22 15:22 WBC 10.5 RBC 4.42 Hgb 12.7 Hct 37.2 MCV 84.1 MCH 28.7 MCHC 34.1 RDW 14.1 Plt Count 259 MPV 8.2 Neut % (Auto) 59.3 Lymph % (Auto) 34.3 [place] % (Auto) 4.7 Eos % (Auto) 0.9 Baso % (Auto) 0.8 Neut # (Auto) 6.2 Lymph # (Auto) 3.6 [place] # (Auto) 0.5 Eos # (Auto) 0.1 Baso # (Auto) 0.1 Sodium 139 Potassium 4.6 Chloride 104 Carbon Dioxide 26 Anion Gap 14 BUN 9 Creatinine 0.7 Est GFR ( Amer) > 60 Est GFR (Non-Af Amer) > 60 Random Glucose 128 H Calcium 9.6 Total Bilirubin 0.5 AST 23 ALT 37 Alkaline Phosphatase 79 Troponin I < 0.0120 Total Protein 7.3 Albumin 4.4 Globulin 2.9 Albumin/Globulin Ratio 1.5 Urine Color Straw Urine Clarity Clear Urine pH 7.0 Ur Specific [place] 1.009 Urine Protein Negative Urine Glucose (UA) Normal Urine Ketones Negative Urine Blood 1+ H Urine Nitrate Negative Urine Bilirubin Negative Urine Urobilinogen Normal Ur Leukocyte Esterase Neg Urine WBC (Auto) < 1 Urine RBC (Auto) 5 H Ur Squamous Epith Cells 5
[2018-03-15] MEDS: Dextrose 5%/0.45% NS 1,000 ML IV SCH (23:50)
[2018-03-16 07:58] VITALS: BP 121/79; TEMP 98.2
[2018-03-16] MEDS: Dextrose 5%/0.45% NS 1,000 ML IV SCH (09:58)
[2018-03-16] MEDS ORDERED: Enoxaparin 40 mg Syringe SC SCH (10:00)
[2018-03-16 16:23] VITALS: PULSE 83
--- NOTE | 2018-03-16 20:06 | CP.PCM.DIS ---
Provider - Provider Date of Admission: 03/15/18 17:02 Attending physician: Dickson Leyva MD Hospital Course - Lab Results Lab Results: Most Recent Lab Values WBC 10.5 K/uL (4.8-10.8) 03/15/18 15: RBC 4.42 Mil/uL (3.80-5.20) 03/15/18 15: Hgb 12.7 g/dL (11.0-16.0) 03/15/18: Hct 37.2 % (34.0-47.0) 03/15/18 15: MCV 84.1 fL (81.0-99.0) 03/15/18: MCH 28.7 pg (27.0-31.0) 03/15/18: MCHC 34.1 g/dL (33.0-37.0) 03/15/18: RDW 14.1 % (11.5-14.5) 03/15/18: Plt Count 259 K/uL (130-400) 03/15/18: MPV 8.2 fL (7.2-11.7) 03/15/18: Neut % (Auto) 59.3 % (50.0-75.0) 03/15/18: Lymph % (Auto) 34.3 % (20.0-40.0) 03/15/18: [place] % (Auto) 4.7 % (0.0-10.0) 03/15/18: Eos % (Auto) 0.9 % (0.0-4.0) 03/15/18: Baso % (Auto) 0.8 % (0.0-2.0) 03/15/18: Neut # (Auto) 6.2 K/uL (1.8-7.0) 03/15/18: Lymph # (Auto) 3.6 K/uL (1.0-4.3) 03/15/18: [place] # (Auto) 0.5 K/uL (0.0-0.8) 03/15/18: Eos # (Auto) 0.1 K/uL (0.0-0.7) 03/15/18 15:22 Baso # (Auto) 0.1 K/uL (0.0-0.2) 03/15/18 15:22 Sodium 139 mmol/L (132-148) 03/15/18 15:22 Potassium 4.6 mmol/L (3.6-5.2) 03/15/18 15:22 Chloride 104 mmol/L (98-107) 03/15/18 15:22 Carbon Dioxide 26 mmol/L (22-30) 03/15/18 15:22 Anion Gap 14 (10-20) 03/15/18 15:22 BUN 9 mg/dL (7-17) 03/15/18 15:22 Creatinine 0.7 mg/dL (0.7-1.2) 03/15/18 15:22 Est GFR ( Amer) > 60 03/15/18 15:22 Est GFR (Non-Af Amer) > 60 03/15/18 15:22 POC Glucose (mg/dL) 181 mg/dL (65-110) H 03/16/18 17:04 Random Glucose 128 mg/dL (65-105) H 03/15/18 15:22 Calcium 9.6 mg/dl (8.6-10.4) 03/15/18 15:22 Total Bilirubin 0.5 mg/dL (0.2-1.3) 03/15/18 15:22 AST 23 U/L (14-36) 03/15/18 15:22 ALT 37 U/L (9-52) 03/15/18 15:22 Alkaline Phosphatase 79 U/L (38-126) 03/15/18 15:22 Troponin I < 0.0120 ng/mL (0.00-0.120) 03/15/18 15:22 Total Protein 7.3 g/dL (6.3-8.3) 03/15/18 15:22 Albumin 4.4 g/dL (3.5-5.0) 03/15/18 15: Globulin 2.9 gm/dL (2.2-3.9) 03/15/18 15:22 Albumin/Globulin Ratio 1.5 (1.0-2.1) 03/15/18 15:22 Urine Color Straw (YELLOW) 03/15/18 15:22 Urine Clarity Clear (Clear) 10/12/18 15:22 Urine pH 7.0 (5.0-8.0) 03/15/18 15:22 Ur Specific [place] 1.009 (1.003-1.030) 03/15/18 15:22 Urine Protein Negative mg/dL (NEGATIVE) 03/15/18 15:22 Urine Glucose (UA) Normal mg/dL (Normal) 03/15/18 15:22 Urine Ketones Negative mg/dL (NEGATIVE) 03/15/18 15: Urine Blood 1+ (NEGATIVE) H 03/15/18 15:22 Urine Nitrate Negative (NEGATIVE) 03/15/18 15:22 Urine Bilirubin Negative (NEGATIVE) 03/15/18 15: Urine Urobilinogen Normal mg/dL (0.2-1.0) 03/15/18 15:22 Ur Leukocyte Esterase Neg [place]/uL (Negative) 03/15/18 15:22 Urine WBC (Auto) < 1 /hpf (0-5) 03/15/18 15:22 Urine RBC (Auto) 5 /hpf (0-3) H 03/15/18 15: Ur Squamous Epith Cells 5 /hpf (0-5) 03/15/18 15:22 Urine HCG, Qual Negative (NEGATIVE) 03/16/18 06:44 Discharge Plan - Discharge Medications Prescriptions: Meclizine [Antivert] 12.5 mg PO TID PRN #15 tab PRN Reason: Dizziness - Follow Up Plan Condition: FAIR Disposition: HOME/ ROUTINE Instructions: Vertigo (a Type of Dizziness) (DC), Hypertension (DC), Hypertension (GEN) Additional Instructions: Please f/u with Dr. Leyva office in 1 week Please f/u with Dr. Sinclair-( [facility] - )office in 1 week -call and make appointment continue medication as per med. rec. Please do sheri BS 3/day - and record and bring to your MD office visit
[2018-03-17] MEDS ORDERED: Pneumococcal 23-Valent Vaccine IM ONE (10:00)
--- NOTE | 2018-03-18 05:06 | CON ---
This is from Dr. Ornelas to Dr. Dickson Leyva. INDICATIONS: I was called for GI consultation by the admitting MD. The patient is seen. The entire chart is reviewed, including, but not limited to the most recent lab and radiology study results, current and previous medication lists, current and previous medical events. The patient is fully examined on 03/16/2018 as requested by the admitting medical team. HISTORY OF PRESENT ILLNESS: This is a 53-year-old female, seen for GI consultation initially on 03/16/2018, as requested by the admitting medical staff in the presence of the staff in the floor, with a complaint of persistent nausea and recurrent vomiting, generalized weakness and malaise, dizziness prior and after the time of her admission, but less than before the time she was seen by me. The patient denied any evidence of active bleeding. No reported significant complaint of abdominal pain, chest pain, palpitation, shortness of breath, chills, or fever. PAST MEDICAL HISTORY: Including, but not limited to: 1. Hypertension. 2. Anxiety syndrome. 3. Depression. 4. Peptic ulcer disease. SOCIAL HISTORY: Cigarette smoking, none. Positive for alcohol intake. CURRENT MEDICATIONS : Post admission medication lists were reviewed. ALLERGIC TO MEDICATIONS: UNCLEAR. FAMILY HISTORY: Unrelated to specific GI disorder. LABORATORY DATA: After being admitted to the hospital, the patient was found to have normal CBC, increased blood glucose level to 128 with increased serum lipase, amylase level than her usual status. PHYSICAL EXAMINATION: GENERAL: A 53-year-old female, awake, alert, oriented with less complaint of abdominal pain. VITAL SIGNS: Afebrile with pulse of 72, respiratory rate 20-22, blood pressure of 134/92. HEENT: Showed mildly dry oral mucous membrane. Nonicteric sclerae. LYMPH NODES: No lymphadenitis or lymphadenopathy. LUNGS: Few scattered crepitation. Decreased air entry at bases. HEART: Positive S1 and S2 with increased rate. ABDOMEN: Soft with mild generalized tenderness, but mainly in the midepigastric area. No mass or organomegaly. No rebound tenderness or guarding. EXTREMITIES: Without significant clubbing, cyanosis, or edema. RECTAL: The patient refused. NEUROLOGICAL: No reported new neurological deficits, sensory or motor. IMPRESSION: 1. Alcoholism. 2. Alcoholic liver disease. 3. Acute pancreatitis, most likely secondary to alcoholism. 4. Re-exacerbation of peptic ulcer disease. 5. New evidence of hyperglycemia. SUGGESTIONS: 1. Agree with your plan. 2. Repeat serum lipase, amylase level. 3. Lipids profile. 4. Cancer markers including CEA, CA 19-9 as well as CA-125. PLAN: 1. Agree with your plan. 2. MRCP. 3. Cancer markers including CEA, CA 19-9, and CA-125. Keep n.p.o. until the patient's symptoms subside. 4. Upper endoscopy only if the patient's symptoms persist. 5. Proton pump inhibitors IV. 6. Reglan IV. 7. Further recommendation to follow. Thank you for letting me participate in your patient's case management. Ruth Ornelas MD
--- NOTE | 2018-03-18 06:19 | HP ---
CHIEF COMPLAINT: Near syncope. HISTORY OF PRESENT ILLNESS: This is a 53-year-old [place] female with history of hypertension, anxiety depression; and on the day after admission, she woke up in the morning with dizziness, she described it as a spinning sensation associated with nausea, vomiting. She denies any blurring of vision, diplopia. She denies any gait problems. She denies any tingling, numbness, paresthesias of the arms and legs. She denies any neurological symptoms on the face. She denies any chest pain or palpitation. She denies any history of polyuria, polydipsia, or polyphagia. She denies history of hematuria or pyuria. She denies any sneezing, itchy eyes, itchy nose. She denies any cough, sore throat, or runny nose. She denies any joint pains. PAST MEDICAL HISTORY: Hypertension, depression. SOCIAL HISTORY: She is a nonsmoker, non-EtOH user. CURRENT MEDICATIONS: As per med rec, she is on Norvasc, Remeron, citalopram, and meclizine. PHYSICAL EXAMINATION: GENERAL: This is a middle-aged female in no acute distress. VITAL SIGNS: Blood pressure 121/79, pulse 79, respiratory rate 20, temperature 98.2. SKIN: No rashes. No bruises. HEENT: Atraumatic, normocephalic. Pupils equally reactive to light and accommodation. NECK: Supple. No JVD. No lymph node. No thyromegaly. CHEST WALL: Bilateral symmetrical expansion. BREASTS: No masses. LUNGS: Clear. CVS: S1 and S2 regular. ABDOMEN: Soft. EXTREMITIES: No clubbing, cyanosis, or edema. CENTRAL NERVOUS SYSTEM: Awake, alert, and oriented x3. ASSESSMENT: 1. Benign positional vertigo versus medication side effects. 2. Hypertension. 3. Depression. PLAN: Admit. Detailed orders written. Seen and examined. Dickson Leyva MD
--- NOTE | 2018-03-18 06:19 | DS ---
DISCHARGE DIAGNOSES: 1. Vertigo. 2. Depression. 3. Hypotension. HISTORY OF PRESENT ILLNESS: This is a 53-year-old female, who was admitted because of dizziness. The patient's dizziness has been improved. She feels better. She did not have any cardiac arrhythmias. She was monitored overnight. No fever. No chills. No chest pain. PHYSICAL EXAMINATION: LUNGS: Clear. CVS: S1 and S2 regular. ABDOMEN: Soft. ASSESSMENT: 1. Benign positional vertigo. 2. Depression. 3. Hypotension. PLAN: Discharge the patient. Dickson Leyva MD
--- NOTE | 2018-03-18 20:44 | CARD ---
APPROVED REPORT Date of service: 03/15/2018 EKG Measurement Heart [id number] <Conclusion> Normal sinus rhythm Normal ECG
== END 2018-03-16 19:45 | disposition home or self-care (01) ==
LOC: C.ER 12:48 → C.9E 17:02 → C.3T 18:35
PROVIDERS: ADMIT Internal Medicine; ATTEND Internal Medicine
DX: H81.10 Benign paroxysmal vertigo, unspecified ear (principal); F32.9 Major depressive disorder, single episode, unspecified; I95.9 Hypotension, unspecified; E11.65 Type 2 diabetes mellitus with hyperglycemia; I10 Essential (primary) hypertension; F17.210 Nicotine dependence, cigarettes, uncomplicated; F10.20 Alcohol dependence, uncomplicated; K85.90 Acute pancreatitis without necrosis or infection, unspecified; K70.9 Alcoholic liver disease, unspecified; K27.9 Peptic ulcer, site unspecified, unspecified as acute or chronic, without hemorrhage or perforation
CPT/HCPCS: 70450; 80053; 81001; 82948; 84484; 84703; 85025; 96360; 96374; 97110; 97116; 97162; 99285; C9113; G0378; G8978; G8979; J1650; J2060; J2405; J7030; J7042